=== PATIENT | male | born 1995 | race Caucasian/White ===

== ENCOUNTER 2024-09-24 20:38 | Emergency (ER) | payer OTHER, SELFPAY ==
[2024-09-24 20:49] VITALS: BP 145/77; PULSE 64; RESP 16; TEMP 36.3; O2SAT 96; BMI 35.4
--- NOTE | 2024-09-24 20:55 | ED_ITS ---
HPI - General Adult General Chief complaint: General Medical Stated complaint: vomiting/lump in the throat/hard to swallow History of Present Illness HPI narrative: Patient left without completion of treatment by ED provider Related Data Allergies Allergy/AdvReac Type Severity Reaction Status Date / Time No Known Allergies Allergy Verified 09/24/24 20:52 [facility] Social History Social History Advance Directives: No Advance Directives Information Provided: No Physical Exam ED Vital Signs: Vital Signs - 24 hr 09/24/24 20:49 Temperature 97.3 F Pulse Rate 64 Respiratory Rate 16 Blood Pressure 145/77 H Pulse Oximetry 96 Oxygen Delivery Method Room Air BMI result Body Mass Index 35.4 Course Course Course Narrative: RME: 28 year male presents to ED for lump in throat x1 week. Patient denies any choking sensation drooling, change in voice, or drooling. Patient states pain while swallowing and sore throat. Oral exam negative for signs of peritonsillar abscess, food bolus, lymphoma, retorpharyngeal or Mauricio's angina. SARs strep ordered Medical Decision Making Lab Data Labs: Lab Results 09/24/24 Range/Units 22:32 Influenza Type A (PCR) NEGATIVE (Negative) Influenza Type B (PCR) NEGATIVE (Negative) RSV RNA Qual (PCR) NEGATIVE (Negative) SARS-CoV-2 RNA (RT-PCR) NEGATIVE (Negative) S. pyogenes GrpA JORDYN Negative (Negative) Discharge Plan Discharge Clinical Impression: Acute sore throat Patient Disposition: Left W/O Completing Treatment Discharge Date/Time: 09/25/24 02:31
[2024-09-24 22:46] LABS: IDNOW Serial# 55D5AD1C; Strep A Nucleic Acid Negative (Negative)
[2024-09-24 23:15] LABS: Influenza A PCR NEGATIVE (Negative); Influenza B PCR NEGATIVE (Negative); Resp Syncy Virus RNA Qual PCR NEGATIVE (Negative); SARS COV2 PCR INHOUSE NEGATIVE (Negative)
== END 2024-09-25 02:31 | disposition left against medical advice (07) ==
PROVIDERS: Emergency Provider Emergency Medicine
DX: J02.9 Acute pharyngitis, unspecified (principal); R11.10 Vomiting, unspecified; R13.10 Dysphagia, unspecified; Z03.818 Encounter for observation for suspected exposure to other biological agents ruled out
CPT/HCPCS: 0241U; 87651; 99281; 99283